=== PATIENT | female | born 1980 | race American Indian/Alaskan Native ===

== ENCOUNTER 2020-09-05 01:03 | Emergency (ER) | payer OTHER ==
[2020-09-05 02:31] LABS: Basophils # (Auto) 0.1 K/mm3 (0.0-0.1); Basophils % (Auto) 0.8 % (0.0-1.8); Eosinophils # (Auto) 0.2 K/mm3 (0.0-0.4); Eosinophils % (Auto) 1.2 % (0.0-4.3); Lymphocytes # (Auto) 1.9 K/mm3 (1.2-5.4); Monocytes % (Auto) 7.4 % (0.0-7.3)
[2020-09-05 02:45] LABS: Hematocrit 37.7 % (30.3-42.9); Mean Corpuscular HGB Conc 32 % (30-34); Mean Corpuscular Volume 80 fl (79-97); Platelet Count 307 K/mm3 (140-440); Red Blood Count 4.74 M/mm3 (3.65-5.03); Red Cell Distribution Width 14.3 % (13.2-15.2)
[2020-09-05 02:51] LABS: Alanine Aminotransferase 15 units/L (7-56); Albumin 4.4 g/dL (3.9-5); BUN/Creatinine Ratio 11; Blood Urea Nitrogen 10 mg/dL (7-17); Calcium 8.9 mg/dL (8.4-10.2); Hemolysis Index 13
--- NOTE | 2020-09-05 03:18 | XRay Report ---
. XR chest routine 2V INDICATION / CLINICAL INFORMATION: chest pain COMPARISON: None available. FINDINGS: SUPPORT DEVICES: None. HEART / MEDIASTINUM: No significant abnormality. LUNGS / PLEURA: Lungs are clear. Costophrenic sulci are sharp. No pneumothorax. ADDITIONAL FINDINGS: No significant additional findings. IMPRESSION: 1. No acute findings. Signer Name: Shadi Mederos MD Signed: 09/05/2020 3:13 AM Workstation Name: [id number]
[2020-09-05] MEDS ORDERED: ONDANSETRON 4 MG/2 ML INJ IV ONE (03:42)
[2020-09-05] MEDS ORDERED: fentaNYL 100 MCG/2 ML INJ IV ONE ×2 (03:42→05:11)
--- NOTE | 2020-09-05 03:49 | Emergency Department Report ---
HPI - General Chief Complaint: Chest Pain Time Seen by Provider: 09/05/20 03:27 - HPI HPI: Room 11 The patient is a 40-year-old female present with a chief complaint of abdominal pain. Patient states she has had diffuse abdominal pain and epigastric pain for the past 3 days. Patient states the pain is been constant and sharp in nature. Patient denies nausea vomiting or diarrhea. Patient states he has had dysuria for the past 3 days but denies vaginal discharge. Patient denies history of fever. Patient gives her pain a score of 6/10 ED Past Medical Hx - Past Medical History Previous Medical History?: No - Surgical History Past Surgical History?: No - Family History Family history: no significant - Social History Smoking Status: Current Every Day Smoker (1/3 pack/day) Substance Use Type: Alcohol (Occasional), Marijuana - Medications Home Medications: Home Medications Medication Instructions Recorded Confirmed Last Taken Type Ciprofloxacin HCl 500 mg PO BID #14 tablet 09/05/20 Unknown Rx Famotidine [Pepcid] 20 mg PO BID #30 tablet 09/05/20 Unknown Rx HYDROcodone/APAP 5-325 [[place] 1 - 2 each PO Q6HR PRN #10 tablet 09/05/20 Unknown Rx 5/325] ED Review of Systems ROS: Stated complaint: CHEST PAIN;ABDOMINAL PAIN Other details as noted in HPI Constitutional: denies: fever Eyes: denies: eye pain ENT: denies: throat pain Respiratory: no symptoms reported Cardiovascular: denies: chest pain Endocrine: no symptoms reported Gastrointestinal: abdominal pain. denies: nausea, vomiting, diarrhea Genitourinary: dysuria Musculoskeletal: denies: back pain Neurological: denies: headache Physical Exam - Physical Exam Vital Signs: Vital Signs 09/05/20 03:30 Temperature 98.2 F Pulse Rate 100 H Respiratory 19 Rate Blood Pressure 158/90 [Left] O2 Sat by Pulse 100 Oximetry Physical Exam: GENERAL: The patient is well-developed well-nourished female lying on stretcher not appearing to be in acute distress. [] HEENT: Normocephalic. Atraumatic. Extraocular motions are intact. Patient has moist mucous membranes. NECK: Supple. Trachea midline CHEST/LUNGS: Clear to auscultation. There is no respiratory distress noted. HEART/CARDIOVASCULAR: Regular. There is no tachycardia. There is no gallop rub or murmur. ABDOMEN: Abdomen is soft, diffusely tender to palpation greatest on the left side. Patient has normal bowel sounds. There is no abdominal distention. SKIN: There is no rash. There is no edema. There is no diaphoresis. NEURO: The patient is awake, alert, and oriented. The patient is cooperative. The patient has no focal neurologic deficits. The patient has normal speech MUSCULOSKELETAL: There is no evidence of acute injury. ED Course Vital Signs 09/05/20 03:30 Temperature 98.2 F Pulse Rate 100 H Respiratory 19 Rate Blood Pressure 158/90 [Left] O2 Sat by Pulse 100 Oximetry ED Medical Decision Making - Lab Data Result diagrams: 09/05/20 01:34 09/05/20 01:34 Laboratory Tests 09/05/20 09/05/20 09/05/20 01:34 01:34 01:34 WBC 12.9 H RBC 4.74 Hgb 12.0 Hct 37.7 MCV 80 MCH 26 L MCHC 32 RDW 14.3 Plt Count 307 Lymph % (Auto) 15.0 [place] % (Auto) 7.4 H Eos % (Auto) 1.2 Baso % (Auto) 0.8 Lymph # (Auto) 1.9 [place] # (Auto) 1.0 H Eos # (Auto) 0.2 Baso # (Auto) 0.1 Seg Neutrophils % 75.6 H Seg Neutrophils # 9.8 H Sodium 134 L Potassium 4.0 Chloride 98.7 Carbon Dioxide 23 Anion Gap 16 BUN 10 Creatinine 0.9 Estimated GFR > 60 BUN/Creatinine Ratio 11 Glucose 104 H Calcium 8.9 Total Bilirubin 0.20 AST 13 ALT 15 Alkaline Phosphatase 62 Troponin T < 0.010 Total Protein 7.8 Albumin 4.4 Albumin/Globulin Ratio 1.3 Lipase HCG, Qual Negative Urine Color Urine Turbidity Urine pH Urine Protein Urine Glucose (UA) Urine Ketones Urine Blood Urine Nitrite Urine Bilirubin Urine Urobilinogen Ur Leukocyte Esterase Urine WBC (Auto) Urine RBC (Auto) U Epithel Cells (Auto) Urine Bacteria (Auto) Urine Mucus 09/05/20 09/05/20 09/05/20 03:53 05:12 05:16 WBC RBC Hgb Hct MCV MCH MCHC RDW Plt Count Lymph % (Auto) [place] % (Auto) Eos % (Auto) Baso % (Auto) Lymph # (Auto) [place] # (Auto) Eos # (Auto) Baso # (Auto) Seg Neutrophils % Seg Neutrophils # Sodium Potassium Chloride Carbon Dioxide Anion Gap BUN Creatinine Estimated GFR BUN/Creatinine Ratio Glucose Calcium Total Bilirubin AST ALT Alkaline Phosphatase Troponin T < 0.010 Total Protein Albumin Albumin/Globulin Ratio Lipase 44 HCG, Qual Urine Color Straw Urine Turbidity Clear Urine pH 5.0 Urine Protein <15 mg/dl Urine Glucose (UA) Neg Urine Ketones Neg Urine Blood Neg Urine Nitrite Neg Urine Bilirubin Neg Urine Urobilinogen < 2.0 Ur Leukocyte Esterase Mod Urine WBC (Auto) 17.0 H Urine RBC (Auto) 4.0 U Epithel Cells (Auto) 3.0 Urine Bacteria (Auto) 1+ Urine Mucus Few - EKG Data -: EKG Interpreted by Me EKG shows normal: sinus rhythm Rate: normal - EKG Data When compared to previous EKG there are: previous EKG unavailable Interpretation: other (No ischemic changes seen) - Radiology Data Radiology results: report reviewed (Chest x-ray, CT abdomen pelvis), image reviewed (Chest x-ray, CT abdomen pelvis) interpreted by me: Chest x-ray-no focal infiltrates, no pneumothorax. No foreign body seen [facility] [address] [place] [address] XRay Report Signed Patient: RUSSEL JOSEPH MR#: [id number] : 1980 Acct:[id number] Age/Sex: 40 / F ADM Date: 09/05/20 Loc: ED Attending Dr: Ordering Physician: SEGUNDO MOREIRA MD Date of Service: 09/05/20 Procedure(s): XR chest routine 2V Accession Number(s): [id number] cc: ED MD LILLIE Fluoro Time In Minutes: . XR chest routine 2V INDICATION / CLINICAL INFORMATION: chest pain COMPARISON: None available. FINDINGS: SUPPORT DEVICES: None. HEART / MEDIASTINUM: No significant abnormality. LUNGS / PLEURA: Lungs are clear. Costophrenic sulci are sharp. No pneumothorax. ADDITIONAL FINDINGS: No significant additional findings. IMPRESSION: 1. No acute findings. Signer Name: Shadi Mederos MD Signed: 09/05/2020 3:13 AM Workstation Name: [id number] Transcribed By: Dictated By: Shadi Mederos MD Electronically Authenticated By: Shadi Mederos MD Signed Date/Time: 09/05/20312 DD/ 2 TD/TT: [facility] [address] [place] [address] Cat Scan Report Signed Patient: RUSSEL JOSEPH MR#: [id number] : 1980 Acct:[id number] Age/Sex: 40 / F ADM Date: 09/05/20 Loc: ED Attending Dr: Ordering Physician: SYLWIA MEEHAN MD Date of Service: 09/05/20 Procedure(s): CT abdomen pelvis w con Accession Number(s): [id number] cc: SYLWIA MEEHAN MD CT abdomen pelvis w con INDICATION: Diffuse abdominal pain, Epigastric pain x 3 days.. COMPARISON: None TECHNIQUE: Abdominal and pelvic CT exam performed. All CT scans at this [facility] are performed using CT dose reduction for ALARA by means of automated exposure control. FINDINGS: CT ABDOMEN and PELVIS: Lung Bases: No significant abnormality. Liver: No significant abnormality. Biliary: No significant abnormality. Spleen: No significant abnormality. Pancreas: The pancreatic head appears mildly prominent. However, there is no pancreatic ductal dilation or underlying lesion seen. No pancreatic tail atrophy. Adrenals: No significant abnormality. Kidneys: The bilateral kidneys are fused with the left kidney to the right of the midline. 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 No hydroureteronephrosis. No stones. No suspicious lesion No suspicious filling defects are seen within the opacified portions of the collecting system, ureters, and bladder on delayed imaging. Lymphatics: No lymphadenopathy. Vasculature: No significant abnormality. Bowel: No significant abnormality. Normal appendix. Pelvis: No significant abnormality. Osseous Structures: No aggressive osseous lesion. Additional Findings: None IMPRESSION: 1. No acute abnormality of the abdomen or pelvis. 2. 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 No stones or suspicious lesion. Signer Name: Shadi Mederos MD Signed: 09/05/2020 4:35 AM Workstation Name: [id number] Transcribed By: KIRSTIN Dictated By: Shadi Mederos MD Electronically Authenticated By: Shadi Mederos MD Signed Date/Time: 09/05/20 0435 DD/ 0425 TD/TT: Print Cancel - Differential Diagnosis Diverticulitis, pyelonephritis, gastritis, peptic ulcer disease pancreatiti Critical care attestation.: If time is entered above; I have spent that time in minutes in the direct care of this critically ill patient, excluding procedure time. ED Disposition Clinical Impression: Acute abdominal pain, Dysuria Disposition: TO HOME OR SELFCARE Is pt being admited?: No Does the pt Need Aspirin: No Condition: Stable Instructions: Abdominal Pain, Adult, [id number] Additional Instructions: Return to the emergency department should you develop worsening symptoms, inability to tolerate food or liquids, high fever or any other concerns Prescriptions: Ciprofloxacin HCl 500 mg PO BID #14 tablet HYDROcodone/APAP 5-325 [[place] 5/325] 1 - 2 each PO Q6HR PRN #10 tablet PRN Reason: Pain Famotidine [Pepcid] 20 mg PO BID #30 tablet Referrals: [facility] [Other] - 3-5 Days ANNMARIE MUJICA MD [Staff Physician] - 3-5 Days (Dr. Muijca is a emergency man. Please follow-up with him for further evaluation)
--- NOTE | 2020-09-05 04:39 | Cat Scan Report ---
CT abdomen pelvis w con INDICATION: Diffuse abdominal pain, Epigastric pain x 3 days.. COMPARISON: None TECHNIQUE: Abdominal and pelvic CT exam performed. All CT scans at this location are performed using CT dose reduction for ALARA by means of automated exposure control. FINDINGS: CT ABDOMEN and PELVIS: Lung Bases: No significant abnormality. Liver: No significant abnormality. Biliary: No significant abnormality. Spleen: No significant abnormality. Pancreas: The pancreatic head appears mildly prominent. However, there is no pancreatic ductal dilati on or underlying lesion seen. No pancreatic tail atrophy. Adrenals: No significant abnormality. Kidneys: The bilateral kidneys are fused with the left kidney to the right of the midline. The left k idney demonstrates a duplicated collecting system which merges into a single left ureter. No hydroure teronephrosis. No stones. No suspicious lesion No suspicious filling defects are seen within the opac ified portions of the collecting system, ureters, and bladder on delayed imaging. Lymphatics: No lymphadenopathy. Vasculature: No significant abnormality. Bowel: No significant abnormality. Normal appendix. Pelvis: No significant abnormality. Osseous Structures: No aggressive osseous lesion. Additional Findings: None IMPRESSION: 1. No acute abnormality of the abdomen or pelvis. 2. 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 The left kidney demonstrates a duplicated collecting syst em which merges into a single left ureter. No stones or suspicious lesion. Signer Name: Shadi Mederos MD Signed: 09/05/2020 4:35 AM Workstation Name: [id number]
[2020-09-05 06:08] LABS: Bacteria,Urine 1+ /HPF (Negative); Bilirubin,Urine NEG (Negative); Blood,Urine NEG (Negative); Color,Urine Straw (Yellow); Mucus,Urine FEW /HPF; Protein,Urine <15 mg/dL mg/dL (Negative); Urobilinogen,Urine < 2.0 mg/dL (<2.0)
[2020-09-05 06:52] VITALS: BP 149/98
== END 2020-09-05 07:00 | disposition home or self-care (01) ==
LOC: ED 01:03
DX: R10.84 Generalized abdominal pain (principal); R30.0 Dysuria; F17.200 Nicotine dependence, unspecified, uncomplicated; F12.10 Cannabis abuse, uncomplicated; Z79.899 Other long term (current) drug therapy
CPT/HCPCS: 36415; 71046; 74177; 80053; 81001; 83690; 84484; 84703; 85025; 87086; 93005; 96374; 96375; 96376; 99284; J2405; J3010; Q9967